=== PATIENT | female | born 1955 | race Caucasian/White ===

== ENCOUNTER 2017-06-30 08:11 | Emergency (ER) | payer OTHER ==
[~2017-06-30] VITALS: Ht 175.3 cm; Wt 64.4 kg
[2017-06-30 08:21] VITALS: BP 137/96
--- NOTE | 2017-06-30 08:23 | NUR ---
PT AMBULATE TO BED 4.
--- NOTE | 2017-06-30 08:25 | NUR ---
PATIENT PRESENTS TO ED WITH C/O PAIN UPON SWALLOWING . PT STATES . DENIES N/V/D; SKIN IS PINK/WARM/DRY; AAOX4 WITH EVEN AND STEADY GAIT; LUNGS CLEAR BL; HR EVEN AND REGULAR; PT DENIES ANY FEVER, CP, SOB, OR COUGH AT THIS TIME; PATIENT STATES PAIN OF 3/10 AT THIS TIME; VSS; PATIENT POSITIONED FOR COMFORT; HOB ELEVATED; BEDRAILS UP X2; BED DOWN. ER MD MADE AWARE OF PT STATUS.
[2017-06-30] MEDS ORDERED: IBUPROFEN 400 MG TAB PO ONE (08:35)
--- NOTE | 2017-06-30 08:45 | NUR ---
LABS COLLECTED---PT WAS PROVIDED WITH ICE TO ALLOW TO MELT IN MOUTH FOR SOOTHING COMFORT
[2017-06-30 08:54] VITALS: BP 132/81
== END 2017-06-30 08:53 | disposition home or self-care (01) ==
LOC: MED 08:11
DX: J03.90 Acute tonsillitis, unspecified (principal)
CPT/HCPCS: 87081; 99282; 99283

== ENCOUNTER 2021-09-21 05:55 | Day surgery (SDC) | payer OTHER, SELFPAY ==
[~2021-09-21] VITALS: Ht 160 cm; Wt 63.5 kg
[2021-09-21 07:19] LABS: BASOPHILS % (AUTO) 0.3 % (0.0-2.0); EOSINOPHILS # (AUTO) 0.2 K/uL (0-0.4); EOSINOPHILS % (AUTO) 3.6 % (0.0-4.0); HEMATOCRIT 38.6 % (36-48); HEMOGLOBIN 13.1 g/dL (12.0-16.0); LYMPHOCYTES # (AUTO) 2.2 K/uL (2.5-16.5); LYMPHOCYTES % (AUTO) 32.6 % (20.5-51.1); MEAN CORPUSCULAR HEMOGLOBIN 30 pg (27-31); MEAN CORPUSCULAR HGB CONC 34 g/dL (33-37); MEAN CORPUSCULAR VOLUME 87.6 fL (80-94); MONOCYTES # (AUTO) 0.4 K/uL (0.8-1.0); MONOCYTES % (AUTO) 5.9 % (1.7-9.3); NEUTROPHILS # (AUTO) 3.9 K/uL (1.8-7.7); NEUTROPHILS % (AUTO) 57.6 % (42.2-75.2); PLATELET COUNT (AUTO) 265 K/uL (140-450); RED BLOOD CELL COUNT(AUTO) 4.41 MIL/uL (4.20-5.40); RED CELL DISTRIBUTION WIDTH 13.6 % (11.6-13.7); WHITE BLOOD COUNT (AUTO) 6.8 K/uL (4.8-10.8)
[2021-09-21 07:33] LABS: PROTHROMBIN TIME 9.6 secs (10.8-13.4)
[2021-09-21] MEDS ORDERED: LIDOCAINE 2% 1000 MG/50 ML VIAL INJ ONE (07:43)
[2021-09-21] MEDS ORDERED: fentaNYL citrate 0.05 MG/ML VIAL ONE (08:04)
[2021-09-21] MEDS ORDERED: fentaNYL citrate 0.05 MG/ML VIAL IVP ONE (08:20)
== END 2021-09-21 09:25 | disposition home or self-care (01) ==
LOC: MDS 05:55 → MMU 05:56 → MDS 09:25
PROVIDERS: ATTEND Internal Medicine Gastroenterology
DX: R94.5 Abnormal results of liver function studies (principal); K76.0 Fatty (change of) liver, not elsewhere classified; E78.5 Hyperlipidemia, unspecified; Z90.710 Acquired absence of both cervix and uterus; Z79.899 Other long term (current) drug therapy; Z20.822 Contact with and (suspected) exposure to COVID-19
CPT/HCPCS: 36415; 47000; 76942; 85025; 85610; 85730; 87426; 88307; 88313; J2001; J3010; Q0092